=== PATIENT | female | born 1965 | race Caucasian/White ===

== ENCOUNTER → 2017-02-24 | Outpatient (CLI) | payer OTHER | LOC: BMCIMAGING 14:07 | PROVIDERS: ATTEND Nurse Practitioner Adult Health | DX: Z12.31 Encounter for screening mammogram for malignant neoplasm of breast (principal) | CPT/HCPCS: G0202 ==

== ENCOUNTER → 2017-06-29 | Outpatient (CLI) | payer OTHER | LOC: FIMAGING 13:56 | PROVIDERS: ATTEND Nurse Practitioner Adult Health | DX: Z13.820 Encounter for screening for osteoporosis (principal); M85.80 Other specified disorders of bone density and structure, unspecified site; Z82.62 Family history of osteoporosis ==

== ENCOUNTER → 2017-10-12 | Outpatient (CLI) | payer OTHER | LOC: BMCIMAGING 07:54 | PROVIDERS: ATTEND Podiatrist Foot & Ankle Surgery | DX: M19.071 Primary osteoarthritis, right ankle and foot (principal); M77.31 Calcaneal spur, right foot ==

== ENCOUNTER → 2017-10-16 | Outpatient (CLI) | payer OTHER | LOC: FIMAGING 15:00 | PROVIDERS: ATTEND Podiatrist Foot & Ankle Surgery | DX: M72.2 Plantar fascial fibromatosis (principal); M77.31 Calcaneal spur, right foot ==

== ENCOUNTER → 2017-11-30 | Outpatient (CLI) | payer OTHER | LOC: BMCIMAGING 15:07 | PROVIDERS: ATTEND Podiatrist Foot & Ankle Surgery | DX: I82.890 Acute embolism and thrombosis of other specified veins (principal) ==

== ENCOUNTER → 2018-02-25 | Outpatient (CLI) | payer OTHER | LOC: BMCIMAGING 14:26 | PROVIDERS: ATTEND Physician Assistant Medical | DX: Z12.31 Encounter for screening mammogram for malignant neoplasm of breast (principal); Z80.3 Family history of malignant neoplasm of breast ==

== ENCOUNTER → 2018-03-10 | Outpatient (CLI) | payer OTHER | LOC: FIMAGING 18:43 | PROVIDERS: ATTEND Podiatrist Foot & Ankle Surgery | DX: Z09 Encounter for follow-up examination after completed treatment for conditions other than malignant neoplasm (principal); Z98.890 Other specified postprocedural states; M72.2 Plantar fascial fibromatosis ==

== ENCOUNTER 2018-08-05 05:49 | Day surgery (SDC) | payer OTHER ==
[2018-08-05] MEDS ORDERED: LR 1,000 ML IV ONE (06:06)
[2018-08-05] MEDS ORDERED: ceFAZolin 2 GM/DEXTROSE 100 ML IV ONE (06:06)
--- NOTE | 2018-08-05 06:58 | PDHPUP ---
History & Physical Update H&P update statement: This history and physical update is based on an assessment of the patient which was completed after admission or registration (within 24 hours), but prior to the surgery/procedure. H&P update: H&P reviewed & patient examined
[2018-08-05] MEDS ORDERED: POLYMYXIN B SULFATE 500,000 UNIT/10 ML SYR IRR ONE (07:01)
[2018-08-05] MEDS ORDERED: BACITRACIN 50,000 UNITS/10 ML SYR IRR ONE (07:01)
[2018-08-05] MEDS ORDERED: BUPIVACAINE 0.5% 30 ML SDV ONE (07:01)
--- NOTE | 2018-08-05 07:02 | PDANEPAE ---
ANE History of Present Illness r foot scar tissue revision ANE Past Medical History - Cardiovascular History Hx Hypertension: No Hx Arrhythmias: No Hx Chest Pain: No Hx Coronary Artery / Peripheral Vascular Disease: No Hx CHF / Valvular Disease: No Hx Palpitations: No Cardiovascular History Comment: Hx of DVT in calf adjacent to calf surgery in 2017 - Pulmonary History Hx COPD: No Hx Asthma/Reactive Airway Disease: No Hx Recent Upper Respiratory Infection: No Hx Oxygen in Use at Home: No Hx Sleep Apnea: No Sleep Apnea Screening Result - Last Documented: Negative - Neurologic History Hx Cerebrovascular Accident: No Hx Seizures: No Hx Dementia: No - Endocrine History Hx Diabetes: No - Renal History Hx Renal Disorders: No - Liver History Hx Hepatic Disorders: No - Neurological & Psychiatric Hx Hx Neurological and Psychiatric Disorders: No - Cancer History Hx Cancer: No - Congenital Disorder History Hx Congenital Disorders: No - GI History Hx Gastrointestinal Disorders: Yes Gastrointestinal History Comment: GERD - Other Health History Other Health History: NEG - Chronic Pain History Chronic Pain: No - Surgical History Prior Surgeries: right heel plantar fasciotomy & gastroc release, 11/2017. R ELBOW REPAIR 2011. R & L THUMB (NEUROMA, LIGAMENT TEAR). R SHOULDER SCOPE ANE Review of Systems Review of Systems: - Exercise capacity METS (RN): 4 METS ANE Patient History - Allergies Allergies/Adverse Reactions: No Known Allergies Allergy (Verified 07/07/18 14:04) - Home Medications Home medications: home medication list seen and reviewed Home Medications: Adult One Daily Multivit Tab 07/07/18 [Last Taken 1 Week Ago ~07/29/18] Calcium 07/07/18 [Last Taken 1 Week Ago ~07/29/18] Dexilant 07/07/18 [Last Taken 08/05/18] Necon 0.5-35-28 Tablet 07/07/18 [Last Taken 08/05/18] Vitamin D3 07/07/18 [Last Taken 1 Week Ago ~07/29/18] - NPO status NPO Status: no food or drink >8 hours NPO Since - Liquids (Date): 08/04/18 NPO Since - Liquids (Time): 23:30 NPO Since - Solids (Date): 08/04/18 NPO Since - Solids (Time): 20:00 - Anes Hx Anes Hx: no prior problems - Smoking Hx Smoking Status: Never smoked - Alcohol Use Alcohol Use: Rarely - Family Anes Hx Family Anes Hx: none Family Hx Anesthesia Complications: NONE ANE Labs/Vital Signs - Vital Signs Blood Pressure: 142/88 Heart Rate: 85 Respiratory Rate: 16 O2 Sat (%): 96 Height: 170.18 cm Weight: 72.575 kg ANE Physical Exam - Airway Neck exam: FROM Mallampati Score: Class 1 Mouth exam: normal dental/mouth exam - Pulmonary Pulmonary: no respiratory distress - Cardiovascular Cardiovascular: regular rate and rhythym - ASA Status ASA Status: I ANE Anesthesia Plan Anesthesia Plan: GA with mask Total IV Anesthesia: Yes
[2018-08-05] MEDS ORDERED: LIDOCAINE 2% 100 MG/5 ML SYR ONE (07:17)
[2018-08-05] MEDS ORDERED: fentaNYL 100 MCG/2 ML INJ ONE (07:17)
[2018-08-05] MEDS ORDERED: PROPOFOL/EMULSION 500 MG/50 ML BOTTLE IV ONE (07:17)
[2018-08-05] MEDS ORDERED: ONDANSETRON 4 MG/2 ML VIAL ONE (07:23)
[2018-08-05] MEDS ORDERED: DEXAMETHASONE 4 MG/ML VIAL ONE (07:23)
[2018-08-05] MEDS ORDERED: KETOROLAC 30 MG/1 ML SDV ONE (07:37)
[2018-08-05] MEDS ORDERED: ONDANSETRON 4 MG/2 ML VIAL IVP PRN (08:04)
[2018-08-05] MEDS ORDERED: OXYCODONE/APAP 5/325 TAB PO PRN (08:04)
[2018-08-05] MEDS ORDERED: ONDANSETRON DISINTEGRATING 4 MG TAB PO PRN (08:04)
--- NOTE | 2018-08-05 08:07 | SUROPNOTE ---
Post Op Note Date of Operation: 08/05/18 Surgeon: Tyron Sanchez Anesthesiologist: MD Yosef Anesthesia: IV Sedation Pre-op Diagnosis: scar tissue, nerve entrapment, right heel Post-op Diagnosis: same Indication: continued pain after surgery Procedure: 1. Scar excision/revision, right heel 2. external neurolysis of nerve Findings: extensive scar tissue subq, right heel; entrapment of nerve, right heel Inf/Abcess present in the surg proc area at time of surgery?: No Depth: Deep Incisional (Fascial) EBL: Minimal Complications: none Specimen(s): swab cx right heel
--- NOTE | 2018-08-05 08:26 | POSTANESTH ---
Post Anesthetic Evaluation Cardiovascular Status: Normal, Stable Respiratory Status: Normal, Stable Level of Consciousness/Mental Status: Can Participate in Eval Pain Control: Adequate, Prn Tx Ordered Nausea/Vomiting Control: Adequate, Prn Tx Ordered Complications Possibly Related to Anesthesia: None Noted
[2018-08-05 08:46] VITALS: BP 116/97
--- NOTE | 2018-08-05 13:33 | GOP ---
DATE OF OPERATION: 08/05/2018 SURGEON: Tyron Sanchez DPM [employer] TECHNICAL DIRECTOR: None. ANESTHESIA: Local with IV sedation. PREOPERATIVE DIAGNOSIS: 1. Scar tissue, right heel. 2. Nerve entrapment, right heel. POSTOPERATIVE DIAGNOSIS: 1. Scar tissue, right heel. 2. Nerve entrapment, right heel. PROCEDURE PERFORMED: 1. Excision/revision of scar tissue, right heel. 2. External neurolysis of medial calcaneal nerve, right heel. 3. Implantation of amniotic tissue membrane from [employer]. This was a 2 x 12 AmnioFix. FINDINGS: SPECIMENS: Culture swab was taken. ESTIMATED BLOOD LOSS: Scant. INDICATIONS: Ms. Hicks had a partial plantar fasciotomy with heel spur excision 6 months ago. Th e patient has had continued pain specifically in and around the scar of the right heel. The patient has completed multiple avenues of conservative care to revise this postsurgical pain including nerve pain. The patient understands the risks, benefits, and alternatives to the procedure presented and w ishes to proceed. DESCRIPTION OF PROCEDURE: Under mild sedation, the patient was brought into the operating room, plac ed on the operating table in a supine position. Following further IV sedation, 27 cc of a regional h eel block was completed. The foot was then scrubbed, prepped, and draped in the usual aseptic manner . A sterile pneumatic tourniquet was placed about the patient's well-padded supramalleolar area. An Esmarch bandage was utilized to exsanguinate the patient's right foot, and the tourniquet was inflat ed to 250 mmHg. Attention was directed to the already existing cicatrix on the medial inferior aspect of the right he el. This scar measuring roughly 3 cm was excised and passed from the operative field. The subcutane ous tissues were undermined with a dissecting scissors. All bleeders were ligated and cauterized as necessary. The incision was deepened via sharp and blunt dissection. The medial calcaneal nerve was found within the scar tissue and released from its scar tissue entrapment. A large amount of scar t issue immediately inferior to this and deep to the incision site was excised and passed from the oper ative field. The soft tissues were further examined, and a great majority of the scar tissue was rem benjamin. The wound was flushed with copious amounts of sterile normal saline. An AmnioFix tissue membr ane was used from [facility].. This was placed on top of the nerve and placed deep within the plantar marce t and then immediately subcutaneous. The incision was closed with only skin sutures. This was compl eted with horizontal mattress-type sutures of 3-0 Prolene. The wound was dressed with Xeroform and a sterile compressive dressing consisting of 4x4s and Rosibel. An Nathan bandage was also applied. The to urniquet was dropped, and prompt hyperemic response was noted to all digits of the right foot. The p atsukhi tolerated the procedure and anesthesia well. She was transferred to the recovery room with vi charmaine signs stable and vascular status intact to all digits of the right foot. Following a period of postoperative monitoring, the patient is being discharged home with the followi ng written and oral postoperative instructions: 1. Keep dressing clean, dry, intact. 2. Use caution while taking pain medication. 3. Ice and elevate as instructed. 4. Use boot at all times when ambulating. 5. All followup questions and concerns should be directed toward [facility] at [phone]. HEMOSTASIS: Pneumatic ankle tourniquet 250 mmHg x60 minutes. MATERIALS: Again, the 2 cm x 12 cm AmnioFix graft from [facility].. INJECTABLES: 27 cc of 0.5% Marcaine plain. COMPLICATIONS: None. /[id number]/MODL
== END 2018-08-05 09:30 | disposition home or self-care (01) ==
LOC: FSGY 05:49
PROVIDERS: ATTEND Podiatrist Foot & Ankle Surgery
DX: L90.5 Scar conditions and fibrosis of skin (principal); G57.81 Other specified mononeuropathies of right lower limb; Z86.718 Personal history of other venous thrombosis and embolism
CPT/HCPCS: C9399; J0690; J1100; J1885; J2001; J2405; J2704; J3010

== ENCOUNTER → 2019-01-06 | Outpatient (CLI) | payer OTHER | LOC: BMCIMAGING 14:49 | PROVIDERS: ATTEND Obstetrics & Gynecology | DX: N92.4 Excessive bleeding in the premenopausal period (principal) ==

== ENCOUNTER → 2019-03-03 | Outpatient (CLI) | payer OTHER | LOC: BMCIMAGING 13:42 ==